=== PATIENT | male | born 1955 ===

== ENCOUNTER 2017-02-02 19:39 | Emergency (ER) | payer OTHER ==
[2017-02-02] MEDS ORDERED: Sodium Chloride 0.9% 1,000 ML IV ONE (20:44)
[2017-02-02] MEDS ORDERED: Iohexol 240 (50 ml) PO ONE (20:44)
--- NOTE | 2017-02-02 20:46 | C.PDOC ---
History Of Present Illness 61 yr old male presents to the ER with complaints of abdominal pain for the past 5hrs, associated with nausea, vomiting and mild dysuria. Patient denies fever, diarrhea, constipation incontinence, back pain weakness or numbness. 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) Current Symptoms Are (Timing): Still Present Associated Symptoms: Nausea, Vomiting Past Medical History Reviewed: Historical Data, Nursing Documentation, Vital Signs Vital Signs: Last Vital Signs Temp 99.4 F 02/02/17 20:33 Pulse 77 02/02/17 20:33 Resp 16 02/02/17 20:33 BP 123/76 02/02/17 20:33 Pulse Ox 96 02/02/17 20:48 Family History: States: No Known Family Hx - Social History Hx Tobacco Use: No Hx Alcohol Use: Yes Hx Substance Use: No - Immunization History Hx Tetanus Toxoid Vaccination: No Hx Influenza Vaccination: No Hx Pneumococcal Vaccination: No Review Of Systems Except As Marked, All Systems Reviewed And Found Negative. Constitutional: Negative for: Fever Gastrointestinal: Positive for: Nausea, Vomiting, Abdominal Pain. Negative for : Diarrhea Genitourinary: Positive for: Dysuria. Negative for: Incontinence Musculoskeletal: Negative for: Back Pain Neurological: Negative for: Weakness, Numbness Physical Exam - Physical Exam Appears: Well, Non-toxic, In Acute Distress (Mild due to pain ) Skin: Warm, Dry, No Rash Head: Atraumatic, Normacephalic Chest: Symmetrical, No Tenderness Cardiovascular: Rhythm Regular, No Murmur Respiratory: Normal Breath Sounds, No Rales, No Rhonchi, No Stridor, No Wheezing Gastrointestinal/Abdominal: Soft, Tenderness (Epigastric tenderness ), No Guarding, No Rebound Extremity: Normal ROM, No Swelling Neurological/Psych: Oriented x3, Normal Speech, Normal Motor ED Course And Treatment - Laboratory Results Result Diagrams: 02/02/17 21:20 02/02/17 21:20 O2 Sat by Pulse Oximetry: 96 Medical Decision Making Medical Decision Making: PLAN: * CT - Abd & Pelvis * CBC * Urinalysis * Pepcid IVP * Toradol IVP * Sodium Chloride IV Disposition Counseled Patient/Family Regarding: Diagnosis - Disposition Referrals: [facility] [Outside] Disposition: HOME/ ROUTINE Disposition Time: 00:02 Condition: STABLE Prescriptions: Famotidine [Pepcid] 20 mg PO BID #20 tab Sucralfate [Carafate] 1 gm PO BID #20 tab Instructions: Gastritis (GEN), Abdominal Pain (ED) Forms: Gen Discharge Inst Greenlandic Print Language: CANADIAN - POA Present On Arrival: None - Clinical Impression Clinical Impression: Abdominal pain, Gastritis - Scribe Statement The provider has reviewed the documentation as recorded by the Dagmar Voss Provider Attestation: All medical record entries made by the Dagmar were at my direction and personally dictated by me. I have reviewed the chart and agree that the record accurately reflects my personal performance of the history, physical exam, medical decision making, and the department course for this patient. I have also personally directed, reviewed, and agree with the discharge instructions and disposition.
[2017-02-02] MEDS ORDERED: Sodium Chloride 0.9% 1,000 ML ONE (21:32)
[2017-02-02 21:34] LABS: BASO % 0.3 % (0.0-2.0); EOS # 0.1 K/uL (0.0-0.7); EOS % 0.6 % (0.0-4.0); HEMATOCRIT 44.5 % (35.0-51.0); LYMPH # 0.7 K/uL (1.0-4.3); MEAN CELL VOLUME 87.2 fL (80.0-94.0); MEAN CORPUSCULAR HEMOGLOBIN 28.6 pg (27.0-31.0); MEAN CORPUSCULAR HGB CONC 32.8 g/dL (33.0-37.0); MEAN PLATELET VOLUME 9.7 fL (7.2-11.7); MONO # 0.7 K/uL (0.0-0.8); MONO % 6.2 % (0.0-10.0); PLATELET COUNT 161 K/uL (130-400); RED CELL DISTRIBUTION WIDTH 13.2 % (11.5-14.5)
[2017-02-02] MEDS ORDERED: Iohexol 240 (50 ml) ONE (21:34)
[2017-02-02 21:35] LABS: WHITE BLOOD COUNT 11.4 K/uL (4.8-10.8)
[2017-02-02 21:39] LABS: CHLORIDE 98 mmol/L (98-107); POTASSIUM 4.1 mmol/L (3.6-5.2); SODIUM 135 mmol/L (132-148)
[2017-02-02 21:41] LABS: BILIRUBIN,TOTAL 0.6 mg/dL (0.2-1.3); CARBON DIOXIDE 26 mmol/L (22-30); GFR AFRICAN-AMERICAN > 60; RBC URINE 2 /hpf (0-3); URINE BILIRUBIN NEGATIVE (NEGATIVE); URINE BLOOD NEGATIVE (NEGATIVE); URINE COLOR Yellow (YELLOW); URINE GLUCOSE (UA) NORMAL (Normal); URINE KETONE NEGATIVE (NEGATIVE); URINE LEUKOCYTE ESTERASE NEG Leu/uL (Negative); URINE PROTEIN 1+ mg/dL (NEGATIVE); URINE UROBILINOGEN NORMAL mg/dL (0.2-1.0); WBC URINE 1 /hpf (0-5)
[2017-02-02 21:42] LABS: ALB/GLOB RATIO 1.4 (1.0-2.1); ALKALINE PHOSPHATASE 66 U/L (38-126); ALT/SGPT 20 U/L (21-72); AST/SGOT 34 U/L (17-59); BLOOD UREA NITROGEN 16 mg/dL (9-20); CALCIUM 8.6 mg/dl (8.6-10.4); GLUCOSE,RANDOM 109 mg/dL (75-110); TOTAL PROTEIN 7.5 g/dL (6.3-8.3)
[2017-02-02] MEDS ORDERED: Iohexol 350mg/ml 100 ML ONE (23:11)
[2017-02-03 00:17] VITALS: BP 104/62; PULSE 62; RESP 18; TEMP 98.2; O2SAT 97
[2017-02-03 08:20] LABS: EOSINOPHIL 1 % (0-4); NEUTROPHIL 89 % (50-75); TOTAL CELLS COUNTED 100
--- NOTE | 2017-02-03 08:27 | CT ---
PROCEDURE: CT Abdomen and Pelvis with oral and IV contrast. HISTORY: abd pain COMPARISON: None available TECHNIQUE: Contiguous axial images of the abdomen and pelvis. Oral and IV contrast was administered. Coronal and Sagittal reformats generated. Contrast dose: 100 cc Omnipaque 350 Radiation dose: Total exam DLP = 498.61 mGy-cm. This CT exam was performed using one or more of the following dose reduction techniques: Automated exposure control, adjustment of the mA and/or kV according to patient size, and/or use of iterative reconstruction technique. FINDINGS: LOWER THORAX: Minimal basilar atelectasis. No visible pleural effusion or pneumothorax. Small hiatal hernia/distal esophageal wall thickening. LIVER: Too small to characterize left hepatic lobe hypodensities, statistically likely cysts. Hypoattenuation of the liver compatible with hepatic steatosis. GALLBLADDER AND BILE DUCTS: Unremarkable. PANCREAS: Unremarkable. SPLEEN: Unremarkable ADRENALS: Unremarkable. KIDNEYS AND URETERS: The kidneys enhance symmetrically. No hydronephrosis or obstructing renal calculus. BLADDER: The urinary bladder appears unremarkable. REPRODUCTIVE: The prostate gland measures approximately 3.9 x 4.6 cm. APPENDIX: The presumed appendix appears within normal limits of caliber. No secondary signs of acute appendicitis BOWEL: The stomach is nondistended. The bowel loops appear within normal limits of caliber without evidence of intestinal obstruction. PERITONEUM: No significant free fluid. No definite free air. LYMPH NODES: No bulky lymphadenopathy identified. VASCULATURE: No aortic aneurysm. BONES: Mild degenerative changes. OTHER FINDINGS: None. IMPRESSION: No acute pathology identified. Incidental findings as above. Preliminary impression was provided by virtual radiologic.
== END 2017-02-03 00:34 | disposition home or self-care (01) ==
LOC: C.ER 19:39
DX: K29.70 Gastritis, unspecified, without bleeding (principal); R10.13 Epigastric pain
CPT/HCPCS: 74177; 80053; 81001; 83690; 85025; 99284; Q9967

== ENCOUNTER 2017-02-13 08:09 | Emergency (ER) | payer OTHER ==
[2017-02-13 08:19] VITALS: TEMP 98.2; O2SAT 99
[2017-02-13] MEDS ORDERED: Naproxen 550 mg Tab PO STA (08:38)
[2017-02-13] MEDS ORDERED: Naproxen 550 mg Tab PO ONE (08:45)
--- NOTE | 2017-02-13 09:23 | C.PDOC ---
History Of Present Illness 61-year-old male, presents to the emergency department with complaints of left shoulder pain x2 months that is worse with movement. Patient states that two months ago, he lifted sheet rock and felt a pull in his shoulder, since then, patient has had pain w/ certain movements. States that sometimes he sleeps on it , which exacerbates the pain. No pain at rest. No shortness of breath or chest pain. Hypoid Gear Tester used. 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 History/Exam Limitations: language barrier Onset/Duration Of Symptoms: Days (2 months) Current Symptoms Are (Timing): Still Present Past Medical History Reviewed: Historical Data, Nursing Documentation, Vital Signs Vital Signs: Last Vital Signs Temp 98.2 F 02/13/17 08:18 Pulse 55 L 02/13/17 09:30 Resp 16 02/13/17 09:30 BP 109/68 02/13/17 09:30 Pulse Ox 99 02/13/17 10:39 Family History: States: No Known Family Hx - Social History Hx Tobacco Use: No Hx Alcohol Use: Yes Hx Substance Use: No - Immunization History Hx Tetanus Toxoid Vaccination: No Hx Influenza Vaccination: No Hx Pneumococcal Vaccination: No Review Of Systems Except As Marked, All Systems Reviewed And Found Negative. Constitutional: Negative for: Fever Gastrointestinal: Negative for: Nausea, Vomiting Musculoskeletal: Positive for: Other (Left shoulder pain) Neurological: Negative for: Weakness, Numbness Physical Exam - Physical Exam Appears: Non-toxic, No Acute Distress Skin: Warm, Dry, No Rash Head: Atraumatic, Normacephalic Eye(s): bilateral: Normal Inspection, EOMI Nose: Normal Oral Mucosa: Moist Neck: Normal, Normal ROM, No Midline Cervical Tenderness, No Paracervical Tenderness, No Step Off Deformity, Supple Lymphatic: Normal Exam Chest: Symmetrical Cardiovascular: Rhythm Regular Respiratory: Normal Breath Sounds Extremity: Normal ROM ((+) pain with abduction passed 90 degrees), Tenderness, Capillary Refill (<2 seconds), No Deformity, No Swelling, Other (tenderness w/ range of motion of left shoulder. ) Extremity: Bilateral: Atraumatic, Normal Color And Temperature Pulses: Left Radial: Normal, Right Radial: Normal Neurological/Psych: Oriented x3, Normal Speech, Normal Motor, Normal Sensation ED Course And Treatment ECG: Interpreted By Me, Viewed By Me ECG Rhythm: Sinus Bradycardia ECG Interpretation: No Acute Changes Rate From EC O2 Sat by Pulse Oximetry: 99 Progress Note: Sling applied by supply chain technician. Patient will be discharged for f/u with ortho in 1-2 days. Disposition - Disposition Referrals: [facility] at [facility] [Outside] Jessica Terry MD [Staff Provider] - Disposition: HOME/ ROUTINE Disposition Time: 09:21 Condition: STABLE Additional Instructions: Vaya a singh mdico o la clnica en 2-5 saleh sin falta, para mas evaluacin. [place] los medicamentos samina indicado. Volver a la aimee de emergencia en cualquier momento si los sntomas persisten o empeoran. Prescriptions: Naproxen [Naprosyn] 1 tab PO BID PRN #20 tab PRN Reason: Pain Instructions: Shoulder Pain (ED) Print Language: KISWAHILI - Clinical Impression Clinical Impression: Shoulder pain - Scribe Statement The provider has reviewed the documentation as recorded by the Scribe Ifeoma Guido All medical record entries made by the Scribe were at my direction and personally dictated by me. I have reviewed the chart and agree that the record accurately reflects my personal performance of the history, physical exam, medical decision making, and the department course for this patient. I have also personally directed, reviewed, and agree with the discharge instructions and disposition.
[2017-02-13 09:31] VITALS: BP 109/68; PULSE 55; RESP 16
--- NOTE | 2017-02-13 11:04 | RAD ---
PROCEDURE: Radiographs of the Left Shoulder HISTORY: pain No antecedent history of trauma provided. COMPARISON: No prior. FINDINGS: BONES: Normal. No fracture. JOINTS: Normal. Glenohumeral and acromioclavicular joints preserved. No osteoarthritis. SOFT TISSUES: Normal. OTHER FINDINGS: None. IMPRESSION: No significant or acute findings to account for/ related to the clinical presentation. Concordant results with the preliminary interpretation rendered by the emergency department physician procedure.
--- NOTE | 2017-02-15 01:58 | CARD ---
APPROVED REPORT EKG Measurement Heart [id number] <Conclusion> Sinus bradycardia Otherwise normal ECG
== END 2017-02-13 09:31 | disposition home or self-care (01) ==
LOC: C.ER 08:09
DX: M25.512 Pain in left shoulder (principal)

== ENCOUNTER 2017-11-28 17:09 | Emergency (ER) | payer OTHER ==
[2017-11-28 17:13] VITALS: BP 136/84; PULSE 65; RESP 18; TEMP 97.8; O2SAT 100
--- NOTE | 2017-11-28 17:27 | C.PDOC ---
History Of Present Illness 62 year old male presents to the ED complaining of nasal congestion, dry cough, sore throat, and mild headaches, for 4 days. Taking ampicillin 500 mg BID sent from [place], without improvement. Denies green discharge/sputum. Patient stopped taking the antibiotic today as it was upsetting his stomach. No fevers, chills, vomiting, or diarrhea. Time Seen by Provider: 11/28/17 17:16 Chief Complaint (Nursing): ENT Problem History Per: Patient History/Exam Limitations: no limitations Onset/Duration Of Symptoms: Days (x4) Current Symptoms Are (Timing): Still Present Location Of Pain: Headache Past Medical History Reviewed: Historical Data, Nursing Documentation, Vital Signs Vital Signs: Last Vital Signs Temp 97.8 F 11/28/17 17:10 Pulse 65 11/28/17 17:10 Resp 18 11/28/17 17:10 BP 136/84 11/28/17 17:10 Pulse Ox 100 11/28/17 17:27 Surgical History: No Surg Hx Family History: States: No Known Family Hx - Social History Hx Tobacco Use: No Hx Alcohol Use: Yes Hx Substance Use: No - Immunization History Hx Tetanus Toxoid Vaccination: No Hx Influenza Vaccination: No Hx Pneumococcal Vaccination: No Review Of Systems Except As Marked, All Systems Reviewed And Found Negative. Constitutional: Negative for: Fever, Chills ENT: Positive for: Nose Congestion, Throat Pain Respiratory: Positive for: Cough. Negative for: Shortness of Breath, Sputum Gastrointestinal: Negative for: Vomiting, Diarrhea Neurological: Positive for: Headache Physical Exam - Physical Exam Appears: Non-toxic, No Acute Distress Skin: Normal Color, Warm, Dry Head: Atraumatic, Normacephalic Eye(s): bilateral: Normal Inspection, PERRL, EOMI Ear(s): Bilateral: Normal Nose: Discharge (nasal congestion noted) Oral Mucosa: Moist Throat: Erythema, No Exudate, Other ((+) post nasal drip) Neck: Normal ROM, Supple Chest: Symmetrical Cardiovascular: Rhythm Regular, No Murmur Respiratory: Normal Breath Sounds, No Accessory Muscle Use, No Rales, No Rhonchi , No Wheezing Gastrointestinal/Abdominal: Soft, No Tenderness, No Distention Extremity: Bilateral: Atraumatic, Normal Color And Temperature, Normal ROM Neurological/Psych: Oriented x3, Normal Speech ED Course And Treatment O2 Sat by Pulse Oximetry: 100 (RA) Pulse Ox Interpretation: Normal Medical Decision Making Medical Decision Making: Impression: mild viral syndrome stomach irritation from the Ampicillin he gets from [place] (? outdated) with no bacterial infections noted Pt counseled regarding diagnosis. Advised to treat symptomatically with dayquil/ nyquil. Stable for d/c home. Disposition Doctor Will See Patient In The: Office Counseled Patient/Family Regarding: Diagnosis, Need For Followup - Disposition Referrals: [facility] [Outside] Disposition: HOME/ ROUTINE Disposition Time: 17:27 Condition: GOOD Additional Instructions: Sigue Dayquil o' Nyquil (o' el equivalente) para las sintoma del sindrome viral. Sigue en la [facility] (gratis) samina necessario. Instructions: Viral Syndrome (DC) Forms: [employer] (Egyptian) Print Language: TURKMEN - POA Present On Arrival: None - Clinical Impression Clinical Impression: Viral syndrome - Scribe Statement The provider has reviewed the documentation as recorded by the Dagmar Lee Provider Attestation: All medical record entries made by the Dagmar were at my direction and personally dictated by me. I have reviewed the chart and agree that the record accurately reflects my personal performance of the history, physical exam, medical decision making, and the department course for this patient. I have also personally directed, reviewed, and agree with the discharge instructions and disposition.
== END 2017-11-28 17:38 | disposition home or self-care (01) ==
LOC: C.ER 17:09
DX: B34.9 Viral infection, unspecified (principal)

== ENCOUNTER 2018-01-13 12:41 | Emergency (ER) | payer OTHER ==
[2018-01-13 12:50] VITALS: BMI 28.0
[2018-01-13 12:51] VITALS: O2SAT 96
--- NOTE | 2018-01-13 13:25 | C.PDOC ---
History Of Present Illness 62 year old male presents to the ER with a complaint of cough and sore throat for the past 2 weeks. Patient reports having a fever 1 week ago which has resolved after using nyquil, however, the cough and sore throat continues. Denies nausea, vomiting, and diarrhea. Time Seen by Provider: 01/13/18 12:55 Chief Complaint (Nursing): Cough, Cold, Congestion History Per: Patient History/Exam Limitations: no limitations Onset/Duration Of Symptoms: Days Current Symptoms Are (Timing): Still Present Location Of Pain: None Sick Contacts (Context): None Associated Symptoms: Sore Throat, Cough. denies: Nausea, Vomiting, Diarrhea Ear Symptoms: Bilateral: None Recent travel outside of the [place]: No Past Medical History Reviewed: Historical Data, Nursing Documentation, Vital Signs Vital Signs: Last Vital Signs Temp 98.1 F 01/13/18 14:33 Pulse 65 01/13/18 14:33 Resp 16 01/13/18 14:33 BP 111/70 01/13/18 14:33 Pulse Ox 96 01/13/18 14:33 Family History: States: Unknown Family Hx - Social History Hx Tobacco Use: No Hx Alcohol Use: No Hx Substance Use: No - Immunization History Hx Tetanus Toxoid Vaccination: No Hx Influenza Vaccination: No Hx Pneumococcal Vaccination: No Review Of Systems Constitutional: Negative for: Fever ENT: Positive for: Throat Pain Respiratory: Positive for: Cough Gastrointestinal: Negative for: Nausea, Vomiting, Diarrhea Physical Exam - Physical Exam Appears: Non-toxic Skin: Normal Color, Warm, Dry Head: Atraumatic, Normacephalic Eye(s): bilateral: Normal Inspection Ear(s): Bilateral: Normal Oral Mucosa: Moist Throat: Normal, No Erythema, No Exudate Neck: Normal, Supple Chest: Symmetrical, No Tenderness Cardiovascular: Rhythm Regular Respiratory: Normal Breath Sounds, No Rales, No Rhonchi, No Wheezing Neurological/Psych: Oriented x3, Normal Speech ED Course And Treatment O2 Sat by Pulse Oximetry: 96 (Room air) Pulse Ox Interpretation: Normal Progress Note: OTHER FINDINGS:IMPRESSION: Suspect minor bibasilar atelectasis right greater than left Medical Decision Making Medical Decision Making: CXR ordered. Disposition - Disposition Disposition: HOME/ ROUTINE Disposition Time: 14:00 Condition: GOOD Additional Instructions: Follow up with the medical doctor within 1-2 days. Return if worsened. 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 - Scribe Statement The provider has reviewed the documentation as recorded by the Scribbuck Guzmán All medical record entries made by the Dagmar were at my direction and personally dictated by me. I have reviewed the chart and agree that the record accurately reflects my personal performance of the history, physical exam, medical decision making, and the department course for this patient. I have also personally directed, reviewed, and agree with the discharge instructions and disposition.
[2018-01-13 14:34] VITALS: BP 111/70; PULSE 65; RESP 16; TEMP 98.1
--- NOTE | 2018-01-13 15:34 | RAD ---
HISTORY: Cough COMPARISON: Comparison made with prior CT scan abdomen pelvis dated 02/02/2017 which imaged both lung bases. . TECHNIQUE: Chest PA and lateral FINDINGS: LUNGS: Suspect minor bibasilar atelectasis right greater than left. PLEURA: No significant pleural effusion identified. No pneumothorax apparent. CARDIOVASCULAR: Normal. OSSEOUS STRUCTURES: Minor multilevel degenerative spondylosis of the thoracic spine. VISUALIZED UPPER ABDOMEN: Normal. OTHER FINDINGS: None. IMPRESSION: Suspect minor bibasilar atelectasis right greater than left
== END 2018-01-13 14:35 | disposition home or self-care (01) ==
LOC: C.ER 12:41
DX: J18.9 Pneumonia, unspecified organism (principal)

== ENCOUNTER 2018-03-25 21:47 | Emergency (ER) | payer SELFPAY ==
[2018-03-25 21:48] VITALS: BMI 28.0
[2018-03-25 22:02] VITALS: BP 143/89; PULSE 64; RESP 18; TEMP 98.5; O2SAT 98
--- NOTE | 2018-03-25 23:06 | C.PDOC ---
History Of Present Illness 62 year old male with PMHx of cataracts presents to the ED c/o blurry vision, itching, redness to his left eye for the past 3 days. 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 Contrary to triage patient has no eye pain. Patient denies injury, fall, trauma, nausea, vomit. Time Seen by Provider: 03/25/18 22:29 Chief Complaint (Nursing): Eye Problem History Per: Patient History/Exam Limitations: no limitations Onset/Duration Of Symptoms: Days Current Symptoms Are (Timing): Still Present Associated Symptoms: Decreased Vision, Swelling, Itching Recent travel outside of the [place]: No Additional History Per: Patient Past Medical History Reviewed: Historical Data, Nursing Documentation, Vital Signs Vital Signs: Last Vital Signs Temp 98.5 F 03/25/18 22:00 Pulse 64 03/25/18 22:00 Resp 18 03/25/18 22:00 BP 143/89 03/25/18 22:00 Pulse Ox 98 03/26/18 02:26 - Medical History Other PMH: cataracts Surgical History: No Surg Hx Family History: States: Unknown Family Hx - Social History Hx Tobacco Use: No Hx Alcohol Use: No Hx Substance Use: No - Immunization History Hx Tetanus Toxoid Vaccination: No Hx Influenza Vaccination: No Hx Pneumococcal Vaccination: No Review Of Systems Constitutional: Negative for: Fever, Chills Eyes: Positive for: Vision Change, Redness. Negative for: Pain Gastrointestinal: Negative for: Nausea, Vomiting Skin: Negative for: Rash Neurological: Negative for: Weakness, Numbness Physical Exam - Physical Exam Appears: Non-toxic, No Acute Distress Skin: Normal Color, Warm, Dry Head: Atraumatic, Normacephalic Eye(s): bilateral: Other (pterygium extending over left lateral aspect of cornea and pupil. conjuctival injection. 20/50 OS and 20/30 OD visual acuity), right: Normal Inspection (visual acuity 20/30 ) Ear(s): Bilateral: Normal Nose: No Discharge Oral Mucosa: Moist Throat: Normal, No Erythema, No Exudate Neck: Normal ROM, Supple Neurological/Psych: Oriented x3, Normal Speech Gait: Steady ED Course And Treatment O2 Sat by Pulse Oximetry: 98 (ON RA) Pulse Ox Interpretation: Normal Progress Note: Patient was advised to follow up with opthalmologist for further evaluation and proper care for his cataracts Disposition Counseled Patient/Family Regarding: Diagnosis, Need For Followup - Disposition Referrals: Evangelista Platt [Staff Provider] - Disposition: HOME/ ROUTINE Disposition Time: 23:03 Condition: STABLE Additional Instructions: Please call Dr Platt office tomorrow for appointment Apply drops as directed Return to ER if worse Prescriptions: Dextran 70/Hypromellose [Artificial Tears Eye Drops] 2 drop OP BID #1 bottle Instructions: Pterygium (DC) Forms: [employer] (Maori) Print Language: TONGAN - Clinical Impression Clinical Impression: Pterygium of left eye - 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 - Scribe Statement The provider has reviewed the documentation as recorded by the Scribe Tyron Garces All medical record entries made by the Scribe were at my direction and personally dictated by me. I have reviewed the chart and agree that the record accurately reflects my personal performance of the history, physical exam, medical decision making, and the department course for this patient. I have also personally directed, reviewed, and agree with the discharge instructions and disposition.
== END 2018-03-25 23:12 | disposition home or self-care (01) ==
LOC: SUPCPDRO 21:47 → C.ER 21:47
DX: H11.002 Unspecified pterygium of left eye (principal)